=== PATIENT | female | born 1935 | race Caucasian/White ===

== ENCOUNTER → 2016-07-08 | Outpatient (CLI) | payer MEDICARE ==
[~2016-07-08] MED LIST: ALPRAZOLAM PO; CELEBREX; CLIMARA1 PATCH.WK; NAPROSYN500 MG PO; PRILOSEC; PROZAC PO; TOPROL XL; VOLTAREN75 MG PO
--- NOTE | ~2016-07-08 | US85 ---
[facility] A Service of [facility] RADIOLOGY TEXT RESULTS PATIENT: MARCELINO JESUS LOCATION: CNIV : 37 UNIT #: [id number] AGE: [address]: Charles Vera MD SEX: F ORDER DR: [id number] [facility] [address] [place], [place] [address] [id number] O MR#: [id number] Acc #: [id number] NAME: MARCELINO JESUS : 1935 SEX: F STUDY DATE/TIME: 07/08/2016 16:52 UNIT: [facility] ROOM: STUDY DESCRIPTION: [facility] Attending Physician: Charles Vera M.D. Referring Physician: Charles Vera M.D. Ordering Physician: Charles Vera M.D. Primary Care Physician: Charles Vera M.D. MEDICAL IMAGING REPORT This report is preliminary unless electronic signature is present EXAM Right leg vein Doppler, 07/08 at 16:52 hours INDICATION Erythema and swelling in the leg for 1 week. Started as hematoma. TECHNIQUE Venous ultrasound examination of the right lower extremity was performed using grayscale, spectral Doppler and color flow Doppler imaging. FINDINGS The examination is negative. There is no evidence of right lower extremity deep venous thrombus from the groin to the lower calf. Visualized greater saphenous vein is also patent. IMPRESSION Negative examination. No evidence of right lower extremity deep venous thrombosis. Dictated by... Taran Singh Jr., M.D. THIS IS AN ELECTRONICALLY VERIFIED REPORT Taran Singh Jr., M.D. at 07/09/2016 10:59 PM ALBERT/may TD: 07/09/2016 15:22 JOB #: [id number] MEDICAL IMAGING REPORT COPY
== END | disposition home or self-care (01) ==
LOC: CNIV 16:22
DX: M79.604 Pain in right leg (principal); M79.89 Other specified soft tissue disorders
CPT/HCPCS: 93971

== ENCOUNTER → 2017-01-02 | Outpatient (CLI) | payer MEDICARE ==
--- NOTE | ~2017-01-02 | MY30 ---
[facility] A Service of [facility] RADIOLOGY TEXT RESULTS PATIENT: MARCELINO JESUS LOCATION: [facility] : 37 UNIT #: [id number] AGE: [address]: Charles Vera MD SEX: F ORDER DR: [id number] [address] [address] [id number] O MR#: [id number] Acc #: [id number] NAME: MARCELINO JESUS : 1935 SEX: F STUDY DATE/TIME: 01/02/2017 9:40 UNIT: [facility] ROOM: STUDY DESCRIPTION: MY SCREEN CONCHA BILAT DIGITAL Attending Physician: Charles Vera M.D. Referring Physician: Charles Vera M.D. Ordering Physician: Charles Vera M.D. Primary Care Physician: Charles Vera M.D. MEDICAL IMAGING REPORT This report is preliminary unless electronic signature is present. EXAM Bilateral digital screening mammogram with CAD, 01/02/2017. INDICATIONS 81-year-old female for routine screening. No reported problems. No personal history of breast cancer. Family history positive in a niece at age 39. History of two prior breast biopsies in 1970 and again 5 years ago with benign results. TECHNIQUE CC and MLO views of breast were obtained and reviewed with an FDA-approved CAD device. COMPARISON 02/05/2014, 03/10/2011, 03/07/2008. FINDINGS Breast parenchyma is composed of scattered fibroglandular densities. The pattern is unchanged. There is no new dominant nodule or mass in either breast. No new suspicious clustered microcalcifications. Benign calcifications are present. An exaggerated CC lateral view was also performed on the right and is negative. IMPRESSION 1. Benign screening mammogram, 1 year follow up recommended. BIRADS 2. Patients over the age of 40 are entered into a reminder system with target due date for the next mammogram. A result letter will also be sent to the patient. BIRADS: 2 Benign findings. [facility] A Service [facility] RADIOLOGY TEXT RESULTS PATIENT: MARCELINO JESUS LOCATION: [facility] : 37 UNIT #: [id number] AGE: [address]: Charles Vera MD SEX: F ORDER DR: Dictated by... Adrian Pantoja M.D. THIS IS AN ELECTRONICALLY VERIFIED REPORT Adrian Pantoja M.D. at 01/06/2017 3:10 PM Antonio TD: 01/05/2017 17:56 JOB #: [id number] MEDICAL IMAGING REPORT Page 1 of 1
== END | disposition home or self-care (01) ==
LOC: SMAM 12-26 13:00
DX: Z12.31 Encounter for screening mammogram for malignant neoplasm of breast (principal); Z85.3 Personal history of malignant neoplasm of breast; Z80.3 Family history of malignant neoplasm of breast; Z98.890 Other specified postprocedural states
CPT/HCPCS: G0202